=== PATIENT | female | born 1960 | race Caucasian/White ===

== ENCOUNTER 2018-08-19 22:45 | Inpatient (IN) | payer SELFPAY ==
[2018-08-19] MEDS ORDERED: dilTIAZem HCl 25 MG/5 ML VIAL IV ONE (23:18)
[2018-08-19] MEDS ORDERED: NA CHLORIDE 0.9% 50 ML IV ONE (23:19)
[2018-08-19] MEDS ORDERED: NA CHLORIDE 0.9% 1,000 ML ONE (23:25)
--- NOTE | 2018-08-19 23:41 | ER ---
Nurse's Notes [facility] Name: Tish Avila Age: 57 yrs Sex: Female : 1960 Arrival Date: 08/19/2018 Time: 22:48 Bed 3 Private MD: Diagnosis: Persistent atrial fibrillation;Tachycardia, unspecified;Angina pectoris, unspecified;Acute kidney failure Presentation: 08/19 22:45 Presenting complaint: EMS states: that pt has not been feeling well x 2 days. Upon fc their arrival pt was pale, diaphoretic, and anxious. Her heart rate was 160-200 and she was in Afib. Pt states that she feels as if someone is sitting on her chest. Transition of care: patient was not received from another setting of care. Onset of symptoms was August 17, 2018. Risk Assessment: Do you want to hurt yourself or someone else? Patient reports no desire to harm self or others. Initial Sepsis Screen: Does the patient meet any 2 criteria? HR > 90 bpm. Yes Does the patient have a suspected source of infection? No. Patient's initial sepsis screen is negative. Care prior to arrival: Medication(s) given: Normal saline infusion, 500 mL, Cardizem 20 mg ivp x 2 IV initiated. 22 GA, in the left antecubital area, Oxygen administered. via nasal cannula. 22:45 Method Of Arrival: EMS: [facility], [place] 22:45 Acuity: NICOLE 2 fc Historical: - Allergies: 22:55 PENICILLINS; 22:55 Tetanus Vaccines \T\ Toxoid; - Home Meds: 22:55 None [Active]; fc - PMHx: 22:55 None; - PSHx: 22:55 Tubal ligation; Hysterectomy; right ankle surg; fc - Immunization history:: Last tetanus immunization: Allergic. - Social history:: Smoking status: Patient uses tobacco products, denies chronic smoking, but will smoke occasionally, Patient uses street drugs, edible pot daily, Patient/guardian denies using alcohol. - Ebola Screening: : Patient negative for fever greater than or equal to 101.5 degrees Fahrenheit, and additional compatible Ebola Virus Disease symptoms Patient denies exposure to infectious person Patient denies travel to an Ebola-affected area in the 21 days before illness onset. Screenin:45 Abuse screen: Denies threats or abuse. Nutritional screening: No deficits noted. fc Tuberculosis screening: No symptoms or risk factors identified. Fall Risk None identified. Assessment: 22:45 General: Appears uncomfortable, Behavior is appropriate for age. Pain: Complains of lp1 pain in chest Pain currently is 7 out of 10 on a pain scale. Quality of pain is described as heavy, pressure. Neuro: Level of Consciousness is awake, alert, obeys commands, Oriented to person, place, time, situation, Reports headache. Cardiovascular: Patient's skin is warm and dry. Rhythm is atrial fibrillation with rapid ventricular response Chest pain is described as severe. Respiratory: Reports shortness of breath Respiratory effort is even, Respiratory pattern is regular, Breath sounds are clear bilaterally. GI: No signs and/or symptoms were reported involving the gastrointestinal system. : No signs and/or symptoms were reported regarding the genitourinary system. EENT: No signs and/or symptoms were reported regarding the EENT system. Derm: Skin is intact, Skin is dry, Skin is normal. Musculoskeletal: No deficits noted. 23:30 Reassessment: Patient is alert, oriented x 3, equal unlabored respirations, skin lp1 warm/dry/pink. Patient states shortness of breath and headache improving Patient states feeling better. Patient states symptoms have improved. 08/20 00:10 Reassessment: Verbal order by Provider to administer Metoprolol 25 mg PO, Lovenox 90mg lp1 SQ. 00:30 Reassessment: Provider notified of patient complaint of nausea; Verbal order to lp1 administer Zofran 4mg IV. 00:45 Reassessment: Patient appears in no apparent distress at this time. Assisted patient to lp1 bathroom via WC. 01:30 Reassessment: Patient appears in no apparent distress at this time. Patient is alert, lp1 oriented x 3, equal unlabored respirations, skin warm/dry/pink. 02:30 Reassessment: Patient resting, eyes closed, respirations unlabored. lp1 Vital Signs: 08/19 22:45 BP 101 / 82; Pulse 146; Resp 20; Temp 97.4(TE); Pulse Ox 99% on R/A; Weight 92.99 kg fc (R); Height 5 ft. 3 in. (160.02 cm) (R); Pain 8/10; 23:00 BP 91 / 73; Pulse 147; Resp 18; Pulse Ox 99% on 2 lpm NC; lp1 23:15 BP 98 / 58; Pulse 138; Resp 23; Pulse Ox 99% on 2 lpm NC; lp1 23:30 BP 110 / 66; Pulse 99; Resp 19; Pulse Ox 99% on 2 lpm NC; lp1 23:45 BP 84 / 55; Pulse 99; Resp 19; Pulse Ox 99% on 2 lpm NC; lp1 08 00:00 BP 100 / 74; Pulse 78; Resp 22; Pulse Ox 100% on 2 lpm NC; lp1 00:20 BP 110 / 52; Pulse 75; Resp 20; Pulse Ox 99% on 2 lpm NC; lp1 00:43 BP 105 / 77; Pulse 79; Resp 19; Pulse Ox 98% on R/A; Pain 4/10; lp1 01:00 BP 97 / 68; Pulse 79; Resp 22; Pulse Ox 98% on R/A; lp1 01:30 BP 104 / 67; Pulse 72; Resp 19; Pulse Ox 99% on R/A; lp1 02:30 BP 102 / 68; Pulse 61; Resp 19; Pulse Ox 99% on R/A; Pain 0/10; lp1 07 22:45 Body Mass Index 36.31 (92.99 kg, 160.02 cm) ED Course: 08/19 22:45 Arm band placed on Patient placed in an exam room, on a stretcher. 22:45 Patient has correct armband on for positive identification. Placed in gown. Bed in low fc position. Call light in reach. Side rails up X2. cafeteria monitor on. Pulse ox on. NIBP on. 22:45 No provider procedures requiring assistance completed. Maintain EMS IV. Dressing fc intact. Good blood return noted. Site clean \T\ dry. Gauge \T\ site: 22 gauge to left a/c. 22:48 Patient arrived in ED. 22:51 Triage completed. fc 23:00 Jacky Ku MD is Attending Physician. tw4 23:20 Inserted saline lock: 22 gauge in right wrist, using aseptic technique. Blood collected.lp1 23:25 Josiane Nieto RN is Primary Nurse. lp1 23:39 Julia Jesus MD is Hospitalizing Provider. tw4 08/20 00:12 Patient admitted, IV remains in place. lp1 00:20 XRAY Chest (1 view) In Process Unspecified. EDMS 00:39 Radiology exam delayed due to lab results not completed at this time. (BUN/Creatinine). kw1 01:14 Radiology exam delayed due to lab results not completed at this time. (BUN/Creatinine). kw1 01:23 Notified ED physician of a critical lab result(s). Bicarb 10, Creatinine 7.4. lp1 Administered Medications: Discontinued: Cardizem 5 mg/hr IV at calculated rate continuous; (standard dilution 125 mg diltiazem mixed in 100mL NS; final concentration 1mg/mL) 08/19 23:10 Drug: NS 0.9% 1000 ml Route: IV; Rate: 1 bolus; Site: left antecubital; lp1 08/20 00:30 Follow up: IV Status: Completed infusion; IV Intake: 1000ml lp1 08/19 23:10 Drug: Cardizem 5 mg/hr Route: IV; Rate: calculated rate; Site: left antecubital; lp1 23:20 Follow up: Rate change 10 mg/hr lp1 23:45 Follow up: Rate change 5 mg/hr lp1 08/20 00:11 Drug: Aspirin Chewable Tablet 324 mg Route: PO; lp1 01:02 Follow up: Response: No adverse reaction lp1 00:11 Drug: Tylenol 1000 mg Route: PO; lp1 01:03 Follow up: Response: Marked relief of symptoms lp1 00:11 Drug: Metoprolol 25 mg Route: PO; lp1 01:03 Follow up: Response: No adverse reaction lp1 00:15 Drug: Lovenox 1 mg/kg Route: Sub-Q; Site: right lower abdomen; lp1 01:03 Follow up: Response: No adverse reaction lp1 00:30 Drug: Zofran 4 mg Route: IVP; Site: right wrist; lp1 00:55 Follow up: Response: Nausea is decreased lp1 01:34 Drug: NS 0.9% 1000 ml Route: IV; Rate: 1 bolus; Site: right wrist; lp1 Intake: 00:30 IV: 1000ml; Total: 1000ml. lp1 Outcome: 08/19 23:40 Decision to Hospitalize by Provider. tw4 08/20 01:01 Condition: improved lp1 Instructed on the need for admit. 02:40 Admitted to ICU accompanied by nurse, via stretcher, room 1, on monitor, with chart, lp1 Report called to POONAM Dunn 03:00 Patient left the ED. lp1 Signatures: Dispatcher [employer] EDMS Thuy Alfaro, RN Josiane Ashford RN RN lp1 Ann-Marie Swenson kw1 Jacky Ku MD MD tw4 Corrections: (The following items were deleted from the chart) 01:00 08/19 22:45 Neuro: Level of Consciousness is awake, alert, obeys commands, Oriented to lp1 person, place, time, situation, lp1 08/20 03:27 03:26 Patient left the ED. lp1 lp1
--- NOTE | 2018-08-19 23:42 | EDPHYS ---
Physician Documentation [facility] Name: Tish Avila Age: 57 yrs Sex: Female : 1960 Arrival Date: 08/19/2018 Time: 22:48 Bed 3 Private MD: ED Physician Jacky Ku HPI: 08/20 01:55 This 57 yrs old Female presents to ER via EMS with complaints of Afib with RVR. tw4 01:55 The patient or guardian reports chest pain that is located primarily in the anterior tw4 chest wall. Onset: today. The pain does not radiate. Associated signs and symptoms: Pertinent positives: lightheadedness, nausea, palpitations. The chest pain is described as dull. Duration: The patient or guardian reports a single episode. Modifying factors: The symptoms are alleviated by. Severity of pain: At its worst the pain was moderate in the emergency department the pain is unchanged. EMS care prior to arrival includes: supplemental oxygen, Cardizem. The patient has not experienced similar symptoms in the past. Historical: - Allergies: 08/19 22:55 PENICILLINS; fc 22:55 Tetanus Vaccines \T\ Toxoid; fc - Home Meds: 22:55 None [Active]; fc - PMHx: 22:55 None; fc - PSHx: 22:55 Tubal ligation; Hysterectomy; right ankle surg; fc - Immunization history:: Last tetanus immunization: Allergic. - Social history:: Smoking status: Patient uses tobacco products, denies chronic smoking, but will smoke occasionally, Patient uses street drugs, edible pot daily, Patient/guardian denies using alcohol. - Ebola Screening: : Patient negative for fever greater than or equal to 101.5 degrees Fahrenheit, and additional compatible Ebola Virus Disease symptoms Patient denies exposure to infectious person Patient denies travel to an Ebola-affected area in the 21 days before illness onset. ROS: 08/20 01:55 Constitutional: Negative for fever, chills, and weight loss, Eyes: Negative for injury, tw4 pain, redness, and discharge, Respiratory: Negative for shortness of breath, cough, wheezing, and pleuritic chest pain. Abdomen/GI: Negative for abdominal pain, nausea, vomiting, diarrhea, and constipation, Back: Negative for injury and pain, MS/Extremity: Negative for injury and deformity, Skin: Negative for injury, rash, and discoloration. Cardiovascular: Positive for chest pain, palpitations, Negative for edema, orthopnea. Exam: 01:55 Constitutional: This is a well developed, well nourished patient who is awake, alert, tw4 and in no acute distress. Head/Face: Normocephalic, atraumatic. Chest/axilla: Normal chest wall appearance and motion. Nontender with no deformity. No lesions are appreciated. Vital Signs: 08/19 22:45 BP 101 / 82; Pulse 146; Resp 20; Temp 97.4(TE); Pulse Ox 99% on R/A; Weight 92.99 kg fc (R); Height 5 ft. 3 in. (160.02 cm) (R); Pain 8/10; 23:00 BP 91 / 73; Pulse 147; Resp 18; Pulse Ox 99% on 2 lpm NC; lp1 23:15 BP 98 / 58; Pulse 138; Resp 23; Pulse Ox 99% on 2 lpm NC; lp1 23:30 BP 110 / 66; Pulse 99; Resp 19; Pulse Ox 99% on 2 lpm NC; lp1 23:45 BP 84 / 55; Pulse 99; Resp 19; Pulse Ox 99% on 2 lpm NC; lp1 08/20 00:00 BP 100 / 74; Pulse 78; Resp 22; Pulse Ox 100% on 2 lpm NC; lp1 00:20 BP 110 / 52; Pulse 75; Resp 20; Pulse Ox 99% on 2 lpm NC; lp1 00:43 BP 105 / 77; Pulse 79; Resp 19; Pulse Ox 98% on R/A; Pain 4/10; lp1 01:00 BP 97 / 68; Pulse 79; Resp 22; Pulse Ox 98% on R/A; lp1 01:30 BP 104 / 67; Pulse 72; Resp 19; Pulse Ox 99% on R/A; lp1 02:30 BP 102 / 68; Pulse 61; Resp 19; Pulse Ox 99% on R/A; Pain 0/10; lp1 08/19 22:45 Body Mass Index 36.31 (92.99 kg, 160.02 cm) fc MDM: 08/19 23:00 Patient medically screened. tw4 08/20 02:36 Differential diagnosis: abnormal EKG, acute myocardial infarction, pneumonia, tw4 pneumothorax, pulmonary embolus, stable angina. Data reviewed: vital signs, nurses notes, EMS record. Data interpreted: school lunch monitor: rate is 147 beats/min, rhythm is atrial fibrillation, Pulse oximetry: Interpretation: normal. Test interpretation: by ED physician or midlevel provider: ECG, plain radiologic studies. Physician consultation: Julia Jesus MD regarding admission, to the ICU, patient's condition, and will see patient in ED. 08/19 23:25 Order name: Basic Metabolic Panel; Complete Time: : lp1 08/20 01:26 Interpretation: Normal except: BUN 60; CRE 7.40; CL 117; CO2 10. tw4 08/19 23:25 Order name: CBC with Diff lp1 08/19 23:25 Order name: LFT's; Complete Time: : lp1 08/20 01:26 Interpretation: Normal except: AST 5; ALT 9; A/G 0.6; GLOB 5.0; ALB 3.1. tw4 08/19 23:25 Order name: Magnesium; Complete Time: :26 lp1 08/20 01:26 Interpretation: Normal except: MG 1.6. tw4 08/19 23:25 Order name: NT PRO-BNP; Complete Time: : lp1 08/20 01:26 Interpretation: Normal except: NT PRO-BNP 2084. tw4 08/19 23:25 Order name: PT-INR; Complete Time: :26 lp1 08/20 01:27 Interpretation: Normal except: PT 13.6. tw4 08/19 23:25 Order name: Troponin (emerg Dept Use Only); Complete Time: : lp1 08/20 01:27 Interpretation: Within normal limits: TROPED < 0.02. tw4 08/20 00:47 Order name: Manual Differential EDMS 08/20 01:49 Order name: Urinalysis EDMS 08/20 01:53 Order name: Lipid Profile EDMS 08/20 01:53 Order name: Protime (+INR) EDMS 08/20 01:53 Order name: PTT, Activated Partial Thromb EDMS 08/20 01:53 Order name: Vitamin B12 Level EDMS 08/20 01:53 Order name: CBC with Automated Diff EDMS 08/19 23:25 Order name: XRAY Chest (1 view) lp1 08/20 01:53 Order name: Comprehensive Metabolic Panel EDCO 08/20 01:53 Order name: Folic Acid, (Folate) EDCO 08/20 01:53 Order name: Magnesium EDCO 08/20 01:53 Order name: Phosphorus EDMS 08/20 01:53 Order name: T4 Free EDCO 08/20 01:53 Order name: Troponin I EDCO 08/20 01:53 Order name: Thyroid Stimulating Hormone EDCO 08/20 01:53 Order name: Renal Ultrasound-Complete EDCO 08/19 23:25 Order name: EKG; Complete Time: 23:28 lp1 08/19 23:25 Order name: Cardiac monitoring; Complete Time: 23:26 lp1 08/19 23:25 Order name: EKG - Nurse/Tech; Complete Time: 23:26 lp1 08/19 23:25 Order name: IV Saline Lock; Complete Time: 23:26 lp1 08/19 23:25 Order name: Labs collected and sent; Complete Time: 23:26 1 08/19 23:25 Order name: O2 Per Protocol; Complete Time: 23:26 1 08/19 23:25 Order name: O2 Sat Monitoring; Complete Time: 23:26 lp1 08/20 01:49 Order name: CONS Physician Consult EDCO 08/20 01:49 Order name: CONS Physician Consult EDCO 08/20 01:49 Order name: Renal EDMS Administered Medications: Discontinued: Cardizem 5 mg/hr IV at calculated rate continuous; (standard dilution 125 mg diltiazem mixed in 100mL NS; final concentration 1mg/mL) 08/19 23:10 Drug: NS 0.9% 1000 ml Route: IV; Rate: 1 bolus; Site: left antecubital; lp1 08/20 00:30 Follow up: IV Status: Completed infusion; IV Intake: 1000ml lp1 08/19 23:10 Drug: Cardizem 5 mg/hr Route: IV; Rate: calculated rate; Site: left antecubital; lp1 23:20 Follow up: Rate change 10 mg/hr lp1 23:45 Follow up: Rate change 5 mg/hr lp1 08/20 00:11 Drug: Aspirin Chewable Tablet 324 mg Route: PO; lp1 01:02 Follow up: Response: No adverse reaction lp1 00:11 Drug: Tylenol 1000 mg Route: PO; lp1 01:03 Follow up: Response: Marked relief of symptoms lp1 00:11 Drug: Metoprolol 25 mg Route: PO; lp1 01:03 Follow up: Response: No adverse reaction lp1 00:15 Drug: Lovenox 1 mg/kg Route: Sub-Q; Site: right lower abdomen; lp1 01:03 Follow up: Response: No adverse reaction lp1 00:30 Drug: Zofran 4 mg Route: IVP; Site: right wrist; lp1 00:55 Follow up: Response: Nausea is decreased lp1 01:34 Drug: NS 0.9% 1000 ml Route: IV; Rate: 1 bolus; Site: right wrist; lp1 Disposition: 08/19/18 23:40 Hospitalization ordered by Julia Jesus for Inpatient Admission. Preliminary diagnosis are Persistent atrial fibrillation, Tachycardia, unspecified, Angina pectoris, unspecified, Acute kidney failure. - Bed requested for Intensive Care Unit. - Status is Inpatient Admission. lp1 - Condition is Fair. - Problem is new. - Symptoms have improved. UTI on Admission? No Signatures: Dispatcher [employer] [facility] Terri Angeles RN RN Thuy Alfaro RN RN Josiane Nieto RN RN lp1 Jacky Ku MD MD tw4 Corrections: (The following items were deleted from the chart) 08/19 23:40 23:40 Hospitalization Ordered by Julia Jesus MD for Inpatient Admission. Preliminary tw4 diagnosis is Persistent atrial fibrillation; Tachycardia, unspecified. Bed requested for Telemetry/MedSurg (Inpatient). Status is Inpatient Admission. Condition is Fair. Problem is new. Symptoms have improved. UTI on Admission? No. tw4 08/20 01:33 08/19 23:40 08/19/2018 23:40 Hospitalization Ordered by Julia Jesus MD for Inpatient tw4 Admission. Preliminary diagnosis is Persistent atrial fibrillation; Tachycardia, unspecified; Angina pectoris, unspecified. Bed requested for Telemetry/MedSurg (Inpatient). Status is Inpatient Admission. Condition is Fair. Problem is new. Symptoms have improved. UTI on Admission? No. tw4 08/20 01:56 08/19 23:02 Chest For PE Angio+CT.RAD.BRZ ordered. [facility] 08/20 02:01 01:33 08/19/2018 23:40 Hospitalization Ordered by Julia Jesus MD for Inpatient mw Admission. Preliminary diagnosis is Persistent atrial fibrillation; Tachycardia, unspecified; Angina pectoris, unspecified; Acute kidney failure. Bed requested for Telemetry/MedSurg (Inpatient). Status is Inpatient Admission. Condition is Fair. Problem is new. Symptoms have improved. UTI on Admission? No. tw4 03:26 02:01 08/19/2018 23:40 Hospitalization Ordered by Julia Jesus MD for Inpatient lp1 Admission. Preliminary diagnosis is Persistent atrial fibrillation; Tachycardia, unspecified; Angina pectoris, unspecified; Acute kidney failure. Bed requested for Intensive Care Unit. Status is Inpatient Admission. Condition is Fair. Problem is new. Symptoms have improved. UTI on Admission? No. mw
[2018-08-20] MEDS ORDERED: ACETAMINOPHEN 500 MG TAB ONE (00:20)
[2018-08-20] MEDS ORDERED: ASPIRIN 81 MG CHEWABLE TABLET ONE (00:20)
[2018-08-20] MEDS ORDERED: METOPROLOL TAR 25 MG TAB ONE (00:20)
[2018-08-20] MEDS ORDERED: ENOXAPARIN 100 MG/ML SYR SQ ONE (00:21)
[2018-08-20] MEDS ORDERED: ONDANSETRON 4 MG/2 ML VIAL ONE (00:29)
[2018-08-20 00:40] LABS: Absolute Lymphocytes (CBC) 0.5 K/uL (0.7-4.9); Absolute Monocytes 0.5 K/uL (0.1-1.3); Absolute Neutrophil 9.4 K/uL (1.8-8.0); Basophils % 0.5 % (0-1.3); Eosinophils % 2.2 % (0-4.4); Hematocrit 41.5 % (36.0-45.0); Lymphocytes % 4.3 % (15.3-44.8); MPV 10.4 fL (7.6-11.3); Protime INR 1.16; RBC Red Blood Cell Count 3.77 M/uL (3.86-4.86)
[2018-08-20 01:24] LABS: ALT/SGPT 9 U/L (12-78); AST/SGOT 5 U/L (15-37); Albumin 3.1 g/dL (3.4-5.0); Alkaline Phosphatase 80 U/L (45-117); BUN Blood Urea Nitrogen 60 mg/dL (7-18); Bicarbonate 10 mmol/L (21-32); Bilirubin Direct 0.1 mg/dL (0-0.2); Bilirubin Total 0.2 mg/dL (0.2-1.0); Glucose Level 88 mg/dL (74-106); Magnesium 1.6 mg/dL (1.8-2.4); NT PRO-BNP 2084 pg/mL (<125); Potassium 3.5 mmol/L (3.5-5.1); Protein, Total 8.1 g/dL (6.4-8.2); Sodium Level 142 mmol/L (136-145); Troponin (Emerg Dept Use Only) < 0.02 ng/mL (0.0-0.045)
[2018-08-20] MEDS ORDERED: ONDANSETRON 4 MG/2 ML VIAL IV PRN (01:41)
[2018-08-20] MEDS ORDERED: NA CHLORIDE 0.9% 1,000 ML ONE (01:43)
[2018-08-20 01:53] LABS: Blood Morphology Comment NOTED (NOT SEEN); Macrocytosis 1+; Platelet Estimate ADEQ
[2018-08-20] MEDS ORDERED: HEPARIN/D5W 25,000 UNIT/500 ML BAG IV SCH (02:00)
[2018-08-20] MEDS ORDERED: D5W 1,000 ML with NA BICARB 8.4% 150 MEQ IV SCH ×2 (02:00)
[2018-08-20] MEDS ORDERED: D5W 1,000 ML IV ONE (04:54)
[2018-08-20] MEDS ORDERED: SODIUM BICARB 50 MEQ/50ML VIAL ONE (05:08)
[2018-08-20] MEDS ORDERED: NA CHLORIDE 0.9% 500 ML IV ONE ×2 (05:40→07:51)
[2018-08-20] MEDS ORDERED: NA CHLORIDE 0.9% 500 ML ONE (05:57)
[2018-08-20] MEDS ORDERED: Magnesium Sulfate 2gm IVPB 2 G/50 ML BAG IV ONE (06:04)
[2018-08-20] MEDS: ONDANSETRON 4 MG/2 ML VIAL IV PRN ×2 (06:38→13:56)
[2018-08-20] MEDS ORDERED: NA CHLORIDE 0.9% 1,000 ML IV SCH (08:00)
[2018-08-20 08:17] LABS: Absolute Lymphocytes (CBC) 0.6 K/uL (0.7-4.9); Absolute Monocytes 0.5 K/uL (0.1-1.3); Absolute Neutrophil 7.1 K/uL (1.8-8.0); Basophils % 0.4 % (0-1.3); Hematocrit 36.2 % (36.0-45.0); Lymphocytes % 7.5 % (15.3-44.8); MPV 10.5 fL (7.6-11.3); Monocytes % 6.1 % (3.3-12.3); RBC Red Blood Cell Count 3.32 M/uL (3.86-4.86)
--- NOTE | 2018-08-20 08:29 | RAD REPORT ---
EXAM DESCRIPTION: Tina Single View08/20/2018 12:17 am CLINICAL HISTORY: Chest pain COMPARISON: none FINDINGS: The lungs appear clear of acute infiltrate. The heart is normal size IMPRESSION: No acute abnormalities displayed
--- NOTE | 2018-08-20 08:59 | RAD REPORT ---
EXAM DESCRIPTION: US - Renal Ultrasound-Complete - 08/20/2018 8:41 am CLINICAL HISTORY: . Acute renal insufficiency COMPARISON: None. FINDINGS: The right kidney measures 11 cm with a normal echotexture. A 12 millimeter calculus. Moder [id number] hydronephrosis The left kidney measures 13 centimeters with a normal echotexture. Moderate to marked hydronephrosis. No gross abnormality of the bladder seen IMPRESSION: Moderate to marked bilateral hydronephrosis Nonobstructing 12 millimeter right renal calculus
[2018-08-20] MEDS ORDERED: ENOXAPARIN 40 MG/0.4 ML SQ SCH (09:00)
--- NOTE | 2018-08-20 09:01 | EKG ---
Test Date: 2018-08-19 Test Time: 22:54:16 Acetylene Gas Compressor: ARTEMIO MEASUREMENT RESULTS: Intervals: Rate: 128 MN: QRSD: 80 QT: 342 QTc: 499 [place]: P: MN: QRS: 18 T: 22 INTERPRETIVE STATEMENTS: Atrial fibrillation with rapid ventricular response with premature ventricular or aberrantly conducted complexes Abnormal ECG No previous ECG available for comparison Electronically Signed On 08-20-18 09:00:28 CDT by Chris Ornelas
--- NOTE | 2018-08-20 09:01 | P.HP ---
Certification for Inpatient Patient admitted to: Inpatient With expected LOS: >2 Midnights Patient will require the following post-hospital care: None Practitioner: I am a practitioner with admitting privileges, knowledge of patient current condition, hospital course, and medical plan of care. Services: Services provided to patient in accordance with Admission requirements found in Title 42 Section 412.3 of the Code of Federal Regulations Patient History Date of Service: 08/20/18 Reason for admission: Atrial fibrillation with RVR-HR of 220/COMPA WITH A GFR LESS THAN 10 History of Present Illness: patient is a 57-year-old female who has been feeling poorly for the last 3 weeks. Her has tried to encourage her to come to the hospital but she was reluctant. She was having some generalized weakness and when she came and called EMS she noted that her heart was beating very fast. She was found to be in atrial fibrillation with rapid ventricular response with a heart rate in the 220s. Patient was given Cardizem IV and then a Cardizem drip and was medically cardioverted. Patient's heart rate has stabilized and patient was given a low- dose beta-gale. The additional labs came back which revealed acute kidney injury with a GFR around 8. Patient was admitted to the hospital and will require cardiology consultation as well as surgical consultation. Patient will be admitted to the hospital for further workup. Allergies Penicillins Allergy (Severe, Verified 08/20/18 03:28) Hives/Rash - Past Medical/Surgical History Has patient received pneumonia vaccine in the past: No Diabetic: No Past Medical History: Patient denies medical history Past Surgical History: Patient denies surgical history -: right ankle surgery -: hysterectomy -: tubal - Family History Mother Medical History: Cancer Father Medical History: Heart disease, Kidney disease Brother Medical History: Heart disease - Social History Smoking Status: Current every day smoker Alcohol use: No CD- Drugs: No Caffeine use: Yes Place of Residence: Home Review of Systems 10-point ROS is otherwise unremarkable Physical Examination - Vital Signs Temperature: 97.1 F Blood Pressure: 75/53 Pulse: 60 Respirations: 17 Pulse Ox (%): 99 - Physical Exam General: Alert, In no apparent distress, Oriented x3 HEENT: Atraumatic, PERRLA, Mucous membr. moist/pink, EOMI, Sclerae nonicteric Neck: Supple, 2+ carotid pulse no bruit, No LAD, Without JVD or thyroid abnormality Respiratory: Normal air movement, Expiratory wheezes Cardiovascular: Irregular heart rate/rhythm, Abnormal S1 S2, Systolic murmur Gastrointestinal: Normal bowel sounds, Soft and benign, Non-distended, No tenderness Musculoskeletal: No clubbing, No swelling, No tenderness Integumentary: No rashes Neurological: Normal gait, Normal speech, Normal strength at 5/5 x4 extr, Normal tone, Sensation intact, Cranial nerves 3-12 intact, Normal affect Lymphatics: No axilla or inguinal lymphadenopathy - Studies Laboratory Data (last 24 hrs) 08/20/18 00:16: PT 13.6 H, INR 1.16 08/20/18 00:16: WBC 10.7, Hgb 13.9, Hct 41.5, Plt Count 219 08/20/18 00:16: Sodium 142, Potassium 3.5, BUN 60 H, Creatinine 7.40 H*, Glucose 88, Magnesium 1.6 L, Total Bilirubin 0.2, AST 5 L, ALT 9 L, Alkaline Phosphatase 80 Assessment & Plan - Problems (Diagnosis) (1) Atrial fibrillation with rapid ventricular response Current Visit: Yes Status: Acute (2) Acute kidney injury Current Visit: Yes Status: Acute (3) Hypotension Current Visit: Yes Status: Acute - Plan Plan: 1. Continue beta-gale for rate control. Patient was given Lovenox at around 1:00 a.m. so will hold on given low anything additional until 1:00 p.m. we may start a heparin drip case patient needs hemodialysis and a dialysis access catheter is needed. Otherwise if labs are improving then we may be able to give Lovenox. Patient has cardioverted chemically with Cardizem. Patient may not need anticoagulation pending cardiology input. 2. Continue to monitor renal function closely. Hydrate and start bicarb drip and repeat labs. If these look good then we will advanced diet as tolerated. Patient has a funny taste in her mouth which is related to the uremia. This should resolve once the uremia has improved. Will continue to keep a close eye on patient's blood pressure as well. Gently hydrate and try to get the blood pressure up otherwise will need to the use some vasopressors. Check a cortisol level as well. 3. will monitor patient closely and possibly be able to get an echocardiogram today so we can further assess the patient. 4. Medication control of heart rate 5. GI and DVT prophylaxis Discharge Plan: Home Plan to discharge in: Greater than 2 days - Advance Directives Does patient have a Living Will: No Does patient have a Durable POA for Healthcare: No - Code Status/Comfort Care Code Status Assessed: Yes Code Status: Full Code Critical Care: Yes Time Spent Managing PTS Care (In Minutes): 50
--- NOTE | 2018-08-20 09:01 | EKG ---
Test Date: 2018-08-19 Test Time: 23:38:47 Gps Field Data Collector: ARTEMIO MEASUREMENT RESULTS: Intervals: Rate: 90 NE: 140 QRSD: 80 QT: 344 QTc: 420 [place]: P: 48 NE: 140 QRS: 11 T: 58 INTERPRETIVE STATEMENTS: Normal sinus rhythm Normal ECG Compared to ECG 08/19/2018 22:54:16 Atrial fibrillation no longer present Ventricular premature complex(es) no longer present Electronically Signed On 08-20-18 09:00:27 CDT by Chris Ornelas
[2018-08-20 09:03] LABS: ALT/SGPT 10 U/L (12-78); Albumin 2.8 g/dL (3.4-5.0); Alkaline Phosphatase 64 U/L (45-117); BUN Blood Urea Nitrogen 60 mg/dL (7-18); Bicarbonate 9 mmol/L (21-32); Bilirubin Total 0.2 mg/dL (0.2-1.0); Folic Acid, (Folate) 7.6 ng/mL (3.1-17.5); Glucose Level 103 mg/dL (74-106); Magnesium 2.3 mg/dL (1.8-2.4); Phosphorus 5.9 mg/dL (2.5-4.9); Potassium 3.2 mmol/L (3.5-5.1); Sodium Level 144 mmol/L (136-145); Troponin I < 0.02 ng/mL (0.0-0.045)
[2018-08-20] MEDS ORDERED: TRAMADOL HCL 50 MG TAB PO ONE (09:03)
[2018-08-20 09:11] LABS: AST/SGOT < 3 U/L (15-37)
[2018-08-20] MEDS: D5W 1,000 ML with NA BICARB 8.4% 150 MEQ IV SCH ×4 (10:00→15:47)
[2018-08-20 10:46] LABS: Urine Appearance CLOUDY; Urine Bilirubin NEGATIVE (NEG); Urine Blood 3+ (NEG); Urine Color YELLOW; Urine Glucose NEGATIVE (NEG); Urine Protein 2+ (NEG); Urine Specific Gravity 1.015 (1.005-1.030); Urine Urobilinogen 0.2 mg/dL (0.2-1.0)
[2018-08-20 10:48] LABS: Urine Microscopic Reflex ORDER UMIC
[2018-08-20 11:21] LABS: Urine RBC 20-50 /HPF (NONE SEEN)
[2018-08-20 11:22] LABS: Urine Bacteria <20 /HPF (<20); Urine Culture Reflex Order REFLEXED
--- NOTE | 2018-08-20 11:44 | RAD REPORT ---
EXAM DESCRIPTION: CT - Abdomen Pelvis Wo Contrast - 08/20/2018 11:10 am CLINICAL HISTORY: Abdominal pain COMPARISON: August 21, 2018 ultrasound TECHNIQUE: Computed axial tomography of the abdomen and pelvis was obtained. IV and oral contrast we re not requested. All CT scans are performed using dose optimization technique as appropriate and may include automated exposure control or mA/KV adjustment according to patient size. FINDINGS: The evaluation of solid organs, vessels and bowel is limited secondary to the lack of con trast administration. Moderate to marked bilateral hydronephrosis. Bilateral renal calculi. 6 millimeter calculus distal right ureter Hounsfield unit 950. A 7 millimeter calculus left ureteral pelvic junction Hounsfield unit 950 The liver, spleen, pancreas, and adrenals appear grossly normal. There is no evidence of diverticulitis. Spondylosis lumbar spine resulting in spinal stenosis IMPRESSION: 6 millimeter distal right ureteral calculus resulting in moderate to marked right hydron ephrosis 7 millimeter calculus left ureteral pelvic junction resulting in moderate to marked hydronephrosis
[2018-08-20] MEDS ORDERED: TRAMADOL HCL 50 MG TAB PO PRN (13:41)
[2018-08-20] MEDS ORDERED: Levofloxacin500mg IV 500 MG/100 ML BAG IV SCH (14:00)
[2018-08-20] MEDS ORDERED: FENTANYL CITR 100 MCG/2 ML IV ONE (15:49)
--- NOTE | 2018-08-20 15:53 | CON ---
Date of Consultation: 08/20/2018 I saw the patient on 08/20/2018. Reason For Consultation: Atrial fibrillation. History Of Present Illness: Ms. Avila is a 57-year-old white woman, who is previously healthy. She has been having diarrhea for approximately a month. Came into the emergency room with hypotension wi th blood pressure of 75/53, creatinine of 7.4, her Mag was 1.6. She had a bicarb level of 10. Her B [employer]ING was 2084. She was found to be in atrial fibrillation, which was really what brought her into the hospital. She received Cardizem in the emergency room and converted to sinus rhythm. Her magnesium was supplemented. She was being hydrated. Nephrology consultation is pending. She denied any synco pe. Denied any PND, orthopnea, or pedal edema. She denies any chest pain. Has been having nausea a nd diarrhea for a month. Denies any fever or chills. Denies any exposure that she knows about. She does travel for work. She was not taking any antibiotics prior to arrival. No cardiac history or r isk factors. Past Medical History: Negative. Allergies: INCLUDE PENICILLIN. Review of Systems: Negative. Social History: Negative. Family History: Noncontributory. Medications: At home are none. Physical Examination: Vital Signs: Today she is in sinus rhythm. Her blood pressure is 95 systolic. Afebrile. HEENT: Negative. Neck: Supple. No bruit. Chest: Clear. Cardiac: Revealed a regular rhythm and rate. No murmurs, gallops, or rubs. Abdomen: Benign. Extremities: Revealed no clubbing, cyanosis, or edema. Diagnostic Data: As stated earlier. Impression And Plan: 1.Atrial fibrillation secondary to electrolyte abnormality and dehydration and renal failure. 2.Acute renal failure secondary to dehydration. 3.Hypotension secondary to dehydration. 4.Hypomagnesemia. 5.Metabolic alkalosis. 6.Elevated brain natriuretic peptide, nonspecific. In the view of renal failure, I think we need to continue hydration rather aggressively. Get an echo cardiogram on Wednesday morning. No specific treatment for atrial fibrillation at this point except to collect the electrolytes. Hydrate. She needs a diarrhea workup. I will continue to follow her. I would definitely not anticoagulate her at this point. CHRISTOPH/MECHE Voice ID: [id number] Report ID: [id number]
[2018-08-20 19:23] LABS: Potassium 2.6 mmol/L (3.5-5.1)
[2018-08-20] MEDS ORDERED: KCL 20 MEQ/100 mL IVPB 20 MEQ/100 ML BAG IV SCH (20:00)
--- NOTE | 2018-08-21 03:01 | CON ---
Date of Consultation: 08/20/2018 History Of Present Illness: Acute kidney injury severe, nonoliguric, associated with hydronephrosis and diminished urine output, borderline oliguric. The patient was found to have severe metabolic aci dosis and was started on sodium bicarbonate drip. The patient has hypotension. She was found to hav e atrial fibrillation with rapid ventricular response, acute kidney injury, and was admitted to ICU. She is 57-year-old woman with history of generalized weakness and feeling weak and fatigued over las t 2-3 weeks. She was taking nonsteroidal anti-inflammatory medication for generalized pain and aches and was taking [id number] medication for pain like ibuprofen on daily basis for at least 2-3 w eeks. On admission to the hospital, she was found to have atrial fibrillation with rapid ventricular response. Heart rate was elevated up to 220. The patient was given Cardizem IV and was medically c onverted. Cardiology consultation was obtained for further workup. Radiology test showed bilateral hydronephrosis. I had long discussion with the patient and her at the bedside about signific ance of hydronephrosis and Urology consultation was requested for bilateral hydronephrosis. Addition al lab showed severe metabolic acidosis. I ordered sodium bicarbonate drip for treatment of metaboli c acidosis, although I discussed with the patient possibility of dialysis if abnormalities are not we ll controlled with conservative measures. Review of Systems: Constitutional: The patient denies fever, chills. Eyes: Denies vision changes. Ears, Nose, Mouth and Throat: Denies sore throat, earache. Respiratory: Denies PND, orthopnea. Denies cough. GI: Denies nausea, vomiting. : Denies hematuria or renal colic. Musculoskeletal: Denies gout. Has generalized weakness, back pain, and joint aches. All other systems reviewed and all are negative. Past Medical History: The patient denies previous history of kidney stone, kidney disease, diabetes. Past Surgical History: Includes right ankle surgery, hysterectomy, tubal . Family History: Mother had cancer. Father had heart disease, kidney disease. Brother heart disease . Social History: Current everyday smoker. Denies alcohol, illicit drugs. Physical Examination: Vital Signs: Blood pressure 75/53, temperature 97.1, respiratory rate 17, pulse oximeter 99%. General: The patient is awake, alert, follows commands. Eyes: Anicteric sclerae. EOMI. Ears, Nose, Mouth, and Throat: Oral mucosa moist. No pallor. Neck: Supple. No bruits. Lungs: Few crackles at bases. Heart: S1, S2. Abdomen: Soft, benign, nontender. Extremities: Slight edema. No clubbing. No cyanosis. Neurological: Moving extremities. Cranial nerves intact. Psychiatric: Alert, oriented x3. Normal affect. Laboratory Data: Sodium 142, potassium 3.5, BUN 60, creatinine 7.4, glucose 88, magnesium 1.6, total bilirubin 0.2, AP 80, ALT 9. Impression And Plan: 1.Acute kidney injury, severe, associated with metabolic acidosis, hypokalemia. The patient will re ceive replacement for potassium and magnesium. The patient was started on sodium bicarbonate drip. The patient was found to have bilateral hydronephrosis and Urology consultation is obtained for [facility] management of bilateral hydronephrosis. The patient may need a cystoscopy. 2.Atrial fibrillation with rapid ventricular response. The patient has been treated with Cardizem d rip. 3.Hypotension. The patient may require pressor. Continue IV fluids for fluid resuscitation. 4.The patient will need antibiotic coverage pending culture result. 5.Acute kidney injury. The patient may require dialysis as soon as possible. The patient at this p oint has not made the decision to start dialysis. The patient may need CVVHD if blood pressure does not improve. SANTANA/MECHE Voice ID: [id number] Report ID: [id number]
[2018-08-21] MEDS ORDERED: CEFTRIAXONE 1 GM/NS 50 ML 1 GM/50 ML BAG IV SCH (09:00)
[2018-08-22] MEDS ORDERED: Levofloxacin 250mg IV 250 MG/50 ML BAG IV SCH (14:00)
== END 2018-08-20 19:45 | disposition short-term general hospital (02) | DRG 309 ==
LOC: ER 22:45 → ERHOLD 08-20 01:42 → 3RD-ICU 08-20 02:47
PROVIDERS: ADMIT Hospitalist; ATTEND Hospitalist
DX: I48.91 Unspecified atrial fibrillation (principal); N17.9 Acute kidney failure, unspecified; E87.3 Alkalosis; N13.30 Unspecified hydronephrosis; I95.9 Hypotension, unspecified; E86.0 Dehydration; E83.42 Hypomagnesemia; F17.210 Nicotine dependence, cigarettes, uncomplicated; Z88.0 Allergy status to penicillin; Z88.7 Allergy status to serum and vaccine
CPT/HCPCS: 36415; 71045; 74176; 76770; 80048; 80053; 80076; 81003; 81015; 82533; 82607; 82746; 83735; 83880; 84100; 84439; 84443; 84484; 85025; 85610; 87086; 87088; 88108; 93005; 96372; 99285; J1650; J2405; J3010; J3475; J7030